=== PATIENT | female | born 1975 | race African-American/Black ===

== ENCOUNTER 2017-03-19 22:48 | Emergency (ER) | payer BC ==
[2017-03-20] MEDS ORDERED: HYDROcodone/Acetaminophen 5/325 mg Tablet ONE
== END 2017-03-20 00:09 | disposition home or self-care (01) ==
LOC: SCSER 22:48
DX: K08.89 Other specified disorders of teeth and supporting structures (principal); Z98.818 Other dental procedure status
CPT/HCPCS: 99282